=== PATIENT | male | born 1990 | race Hispanic/Latino ===

== ENCOUNTER 2017-08-24 03:48 | Emergency (ER) | payer BC, MEDICARE, OTHER ==
[2017-08-24 04:55] LABS: BASOPHILS % (AUTO) 0.8 % (0.0-5.0); EOSINOPHILS % (AUTO) 3.5 % (0.0-8.0); HEMATOCRIT 44.2 % (42-54); LYMPHOCYTES % (AUTO) 32.2 % (21.0-51.0); MEAN CORPUSCULAR HEMOGLOBIN 29.6 pg (27.0-33.0); MEAN CORPUSCULAR HGB CONC 34.4 g/dL (32.0-36.0); MEAN CORPUSCULAR VOLUME 86.1 fL (79-99); MONOCYTES % (AUTO) 9.2 % (3.0-13.0); NEUTROPHILS % (AUTO) 54.3 % (40.0-77.0); PLATELET COUNT (AUTO) 218 K/uL (130-400); RED BLOOD CELL COUNT(AUTO) 5.14 MIL/uL (4.50-6.20); RED CELL DISTRIBUTION WIDTH 13.8 % (11.0-15.5); WHITE BLOOD COUNT (AUTO) 8.8 K/uL (4.8-10.8)
[2017-08-24 05:03] LABS: CREATININE 0.9 mg/dL (0.5-1.5); POTASSIUM 3.9 mmol/L (3.5-5.1)
[2017-08-24 05:08] LABS: ALBUMIN 3.7 g/dL (3.5-5.0); BILIRUBIN,TOTAL 0.5 mg/dL (0.2-1.0)
== END 2017-08-24 07:39 | disposition home or self-care (01) ==
LOC: EDH 03:48
DX: R07.89 Other chest pain (principal)
CPT/HCPCS: 36415; 71046; 80053; 82550; 84484; 85025; 93005

== ENCOUNTER 2019-02-26 02:41 | Emergency (ER) | payer MEDICARE | END 2019-02-26 03:28 | LOC: EDH 02:41 | DX: Z02.83 Encounter for blood-alcohol and blood-drug test (principal) ==

== ENCOUNTER 2023-10-09 11:29 | Emergency (ER) | payer MEDICARE, OTHER ==
[~2023-10-09] VITALS: Ht 172.7 cm; Wt 95.3 kg
[2023-10-09] MEDS: HYDROCODONE/ACETAMINOPHEN 5/325 MG TAB PO ONE (14:00)
[2023-10-09] MEDS ORDERED: CYCL10TA16 PO (16:30)
[2023-10-09 17:22] VITALS: BP 147/78; PULSE 78; RESP 18; O2SAT 98
== END 2023-10-09 17:28 | disposition home or self-care (01) ==
LOC: EDH 11:29
DX: S80.12XA Contusion of left lower leg, initial encounter (principal); X58.XXXA Exposure to other specified factors, initial encounter; Y93.9 Activity, unspecified; Y92.89 Other specified places as the place of occurrence of the external cause; Y99.8 Other external cause status
CPT/HCPCS: 73700; 93971